=== PATIENT | female | born 1930 | race Caucasian/White ===

== ENCOUNTER 2016-09-01 14:50 | Outpatient (CLI) | payer MEDICARE | END 2016-09-01 14:51 | disposition home or self-care (01) | DX: J84.10 Pulmonary fibrosis, unspecified (principal); J84.9 Interstitial pulmonary disease, unspecified ==

== ENCOUNTER 2016-09-06 12:32 | Emergency (ER) | payer MEDICARE ==
[2016-09-06] MEDS ORDERED: IOPAMIDOL-300 100 ML VIAL IVP ONE (16:22)
== END 2016-09-06 17:37 | disposition home or self-care (01) ==
DX: J84.89 Other specified interstitial pulmonary diseases (principal); J84.10 Pulmonary fibrosis, unspecified; E03.9 Hypothyroidism, unspecified
CPT/HCPCS: 36415; 71275; 80053; 83690; 85379; 99283; 99284; Q9967

== ENCOUNTER 2016-09-15 | Outpatient (CLI) | payer MEDICARE | END 2016-09-15 14:45 | disposition critical access hospital (66) | CPT/HCPCS: A0425; A0429 ==

== ENCOUNTER 2016-09-15 15:17 | Inpatient (IN) | payer MEDICARE ==
[2016-09-15] MEDS ORDERED: IPRATROPIUM/ALBUTEROL 3 ML NEB INH STA (16:04)
[2016-09-15] MEDS ORDERED: IPRATROPIUM/ALBUTEROL 3 ML NEB INH ONE (16:18)
[2016-09-15] MEDS ORDERED: AZITHROMYCIN 250 MG TABLET PO STA (17:41)
[2016-09-15] MEDS ORDERED: cefTRIAXone 1 GM in SODIUM CHLORIDE 0.9% MINIBAG 100 ML IV STA (18:01)
[2016-09-15] MEDS ORDERED: AZITHROMYCIN 250 MG TABLET PO ONE (18:11)
[2016-09-15] MEDS ORDERED: cefTRIAXone 1 GM VIAL ONE (18:12)
[2016-09-15] MEDS ORDERED: SODIUM CHLORIDE FLUSH 0.9% 10 ML SYRINGE IVP PRN (18:30)
[2016-09-15] MEDS ORDERED: IPRATROPIUM/ALBUTEROL 3 ML NEB INH PRN (18:38)
[2016-09-15] MEDS: BUDESONIDE 0.5 MG/2 ML NEB INH SCH (19:00)
[2016-09-15] MEDS: methylPREDNISolone SUCCINATE 40 MG/ML VIAL IVP SCH (20:26)
[2016-09-15] MEDS: SODIUM CHLORIDE FLUSH 0.9% 10 ML SYRINGE IVP SCH (20:26)
[2016-09-15] MEDS: FAMOTIDINE 20 MG TABLET PO SCH (20:26)
[2016-09-16] MEDS: SODIUM CHLORIDE FLUSH 0.9% 10 ML SYRINGE IVP SCH ×3 (07:03→20:52)
[2016-09-16] MEDS ORDERED: SODIUM CHLORIDE 0.9% 1,000 ML IV ONE (08:50)
[2016-09-16] MEDS: SACCHAROMYCES BOULARDII 250 MG CAPSULE PO SCH ×2 (09:00→16:02)
[2016-09-16] MEDS: FAMOTIDINE 20 MG TABLET PO SCH (09:00)
[2016-09-16] MEDS: LISINOPRIL 20 MG TABLET PO SCH (09:00)
[2016-09-16] MEDS ORDERED: AZITHROMYCIN INJ 500 MG in SODIUM CHLORIDE 0.9% 250 ML IV SCH (09:00)
[2016-09-16] MEDS: ENOXAPARIN 40 MG/0.4 ML SYRINGE SUBQ SCH (09:17)
[2016-09-16] MEDS: methylPREDNISolone SUCCINATE 40 MG/ML VIAL IVP SCH ×2 (09:17→20:49)
[2016-09-16] MEDS: cefTRIAXone 1 GM in SODIUM CHLORIDE 0.9% MINIBAG 100 ML IV SCH (09:17)
[2016-09-16] MEDS: POLYETHYLENE GLYCOL 3350 17 GM PACKET PO SCH (09:18)
[2016-09-16] MEDS: AZITHROMYCIN INJ 500 MG in SODIUM CHLORIDE 0.9% 250 ML IV SCH (10:06)
[2016-09-16] MEDS: BUDESONIDE 0.5 MG/2 ML NEB INH SCH ×2 (10:51→20:40)
[2016-09-16] MEDS: ALPRAZolam 0.25 MG TABLET PO PRN (21:52)
[2016-09-17] MEDS ORDERED: LEVALBUTEROL 1.25 MG INH ONE ×2 (10:34→14:43)
[2016-09-17] MEDS ORDERED: SODIUM CHLORIDE INHALATION 3 ML NEB ONE ×2 (10:34→14:43)
[2016-09-17] MEDS: BUDESONIDE 0.5 MG/2 ML NEB INH SCH ×2 (17:04→19:20)
[2016-09-17] MEDS: SODIUM CHLORIDE FLUSH 0.9% 10 ML SYRINGE IVP SCH ×3 (17:04→20:02)
[2016-09-17] MEDS: FAMOTIDINE 20 MG TABLET PO SCH (17:05)
[2016-09-17] MEDS: cefTRIAXone 1 GM in SODIUM CHLORIDE 0.9% MINIBAG 100 ML IV SCH (17:05)
[2016-09-17] MEDS: AZITHROMYCIN INJ 500 MG in SODIUM CHLORIDE 0.9% 250 ML IV SCH (17:05)
[2016-09-17] MEDS: ENOXAPARIN 40 MG/0.4 ML SYRINGE SUBQ SCH (17:05)
[2016-09-17] MEDS: POLYETHYLENE GLYCOL 3350 17 GM PACKET PO SCH (17:05)
[2016-09-17] MEDS: LEVOTHYROXINE 75 MCG TABLET PO SCH (17:05)
[2016-09-17] MEDS: SACCHAROMYCES BOULARDII 250 MG CAPSULE PO SCH ×2 (17:05→18:25)
[2016-09-17] MEDS: LISINOPRIL 20 MG TABLET PO SCH (17:05)
[2016-09-17] MEDS: methylPREDNISolone SUCCINATE 40 MG/ML VIAL IVP SCH (17:06)
[2016-09-17] MEDS: LEVALBUTEROL 1.25 MG INH PRN (19:19)
[2016-09-17] MEDS: SODIUM CHLORIDE INHALATION 3 ML NEB INH PRN (19:19)
[2016-09-17] MEDS: ALPRAZolam 0.25 MG TABLET PO PRN (20:02)
[2016-09-18] MEDS: SODIUM CHLORIDE FLUSH 0.9% 10 ML SYRINGE IVP SCH (06:53)
[2016-09-18] MEDS: SODIUM CHLORIDE INHALATION 3 ML NEB INH PRN (07:45)
[2016-09-18] MEDS: LEVALBUTEROL 1.25 MG INH PRN (07:45)
[2016-09-18] MEDS: BUDESONIDE 0.5 MG/2 ML NEB INH SCH (07:45)
[2016-09-18] MEDS ORDERED: CHOLECALCIFEROL 5,000 UNIT CAPSULE PO SCH (09:00)
[2016-09-18] MEDS: SACCHAROMYCES BOULARDII 250 MG CAPSULE PO SCH (09:31)
[2016-09-18] MEDS: LEVOTHYROXINE 75 MCG TABLET PO SCH (09:31)
[2016-09-18] MEDS: ENOXAPARIN 40 MG/0.4 ML SYRINGE SUBQ SCH (09:31)
[2016-09-18] MEDS: cefTRIAXone 1 GM in SODIUM CHLORIDE 0.9% MINIBAG 100 ML IV SCH (09:32)
[2016-09-18] MEDS: LISINOPRIL 20 MG TABLET PO SCH (09:32)
[2016-09-18] MEDS: POLYETHYLENE GLYCOL 3350 17 GM PACKET PO SCH (09:32)
[2016-09-18] MEDS: FAMOTIDINE 20 MG TABLET PO SCH (09:32)
[2016-09-18] MEDS: AZITHROMYCIN INJ 500 MG in SODIUM CHLORIDE 0.9% 250 ML IV SCH (11:13)
== END 2016-09-18 13:00 | disposition home or self-care (01) | DRG 195 ==
DX: J18.1 Lobar pneumonia, unspecified organism (principal); J84.10 Pulmonary fibrosis, unspecified; E03.9 Hypothyroidism, unspecified; R06.02 Shortness of breath; I10 Essential (primary) hypertension; F41.9 Anxiety disorder, unspecified; Z87.11 Personal history of peptic ulcer disease; Z79.52 Long term (current) use of systemic steroids; Z79.899 Other long term (current) drug therapy; Z87.891 Personal history of nicotine dependence

== ENCOUNTER 2016-09-22 | Outpatient (CLI) | payer MEDICARE | END 2016-09-22 12:29 | disposition critical access hospital (66) | DX: R55 Syncope and collapse (principal) | CPT/HCPCS: A0425; A0427 ==

== ENCOUNTER 2016-09-22 11:20 | Outpatient (CLI) | payer MEDICARE | END 2016-09-22 11:21 | disposition home or self-care (01) | DX: J18.9 Pneumonia, unspecified organism (principal); J84.10 Pulmonary fibrosis, unspecified ==

== ENCOUNTER 2016-09-22 13:00 | Emergency (ER) | payer MEDICARE ==
[2016-09-22] MEDS ORDERED: SODIUM CHLORIDE 0.9% 1,000 ML IV ONE ×3 (13:47→14:54)
== END 2016-09-22 16:56 | disposition home or self-care (01) ==
DX: R55 Syncope and collapse (principal); E86.0 Dehydration; J18.9 Pneumonia, unspecified organism; J84.10 Pulmonary fibrosis, unspecified

== ENCOUNTER 2017-02-07 11:06 | Outpatient (CLI) | payer MEDICARE ==
--- NOTE | 2017-02-08 10:47 | CT Report ---
CT EXAM OF THE CHEST: 02/07/2017 CLINICAL HISTORY: Interstitial lung disease. COMPARISON: 09/06/2016 TECHNIQUE: Examination was done without contrast initially at 5 x 5 mm intervals but then with recon structions at 2 x 2 mm intervals. FINDINGS: Lungs demonstrate ground-glass opacification of moderate degree involving the anterior seg ment of the left upper lobe. There are also some minor areas of ground-glass opacification present i n both lower lobes. In addition, there are some patchy areas of ground-glass opacification in the ri ght upper lobe. The involvement of the lungs with ground-glass opacification is of moderate degree, left greater than right. Present findings are very similar to those noted on preceding exam of 09/06. 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 The interstitial pneumonia may be of the nonspe cific type or related to desquamated interstitial pneumonia. The areas of ground-glass opacification can often be improved with steroid therapy. Recommend patient have a chest consult for further eval uation. There are no significant subpleural cystic changes seen. Mediastinum demonstrates some small benign-appearing lymph nodes in the paratracheal region and subca rinal region. A small sliding hiatal hernia is seen. Normal cardiac size is noted with extensive coronary artery c alcification involving the left anterior descending coronary artery and the left coronary artery. Mi nor coronary artery calcification is seen in the right coronary artery. Anterior spurring is seen in the pel-kr-noqqr thoracic spine and in the upper lumbar spine. Surgical clips are seen in the luis hepatis, most likely a result of a prior cholecystectomy. IMPRESSION: 1. INTERSTITIAL LUNG DISEASE IS NOTED BILATERALLY OF MODERATE DEGREE WITHOUT SIGNIFICANT CHANGE C OMPARED TO 09/06/2016. PRIMARY MANIFESTATION OF THE INTERSTITIAL LUNG DISEASE IS AREAS OF GROUND-GLA SS OPACIFICATION. THIS INDICATES THAT THE INTERSTITIAL LUNG DISEASE MAY BE AT LEAST PARTIALLY REVERS IBLE WITH STEROID THERAPY. ETIOLOGICAL CONSIDERATIONS INCLUDE NONSPECIFIC INTERSTITIAL PNEUMONIA OR DESQUAMATED INTERSTITIAL PNEUMONIA. RECOMMEND CHEST CONSULT FOR FURTHER EVALUATION. 2. SMALL HIATAL HERNIA IS SEEN. 3. NORMAL CARDIAC SIZE WITH EXTENSIVE CALCIFICATION INVOLVING THE LEFT CORONARY ARTERY AND LEFT ANTE RIOR DESCENDING CORONARY ARTERY. 19:9:29 JOB #: [id number] EXT JOB #:[id number]
== END 2017-02-07 11:07 | disposition home or self-care (01) ==
LOC: DI 11:06
PROVIDERS: ATTEND Internal Medicine Critical Care Medicine
DX: J84.9 Interstitial pulmonary disease, unspecified (principal); K44.9 Diaphragmatic hernia without obstruction or gangrene; I25.10 Atherosclerotic heart disease of native coronary artery without angina pectoris
CPT/HCPCS: 71250